=== PATIENT | female | born 1975 | race Caucasian/White ===

== ENCOUNTER 2017-01-14 07:08 | Emergency (ER) | payer SELFPAY ==
--- NOTE | 2017-01-14 08:25 | ER Document Report ---
HPI - HPI Patient complains to provider of: pulled maggot out of scalp Onset: Other - 2 weeks Onset/Duration: Gradual Pain Level: 3 Context: 41 yo female normally healthy has been scratching scalp because of itching since her aaughter was dx with scabies. pulled"maggot out this am". Cant' stop the itch and scratching Under stress with spouse, Not suicidal. Tearful. Also c/ o neck pain, swelling. Associated Symptoms: None Exacerbated by: Denies Similar symptoms previously: No - ROS ROS below otherwise negative: Yes Systems Reviewed and Negative: Yes All other systems reviewed and negative - REPRODUCTIVE Reproductive: DENIES: : - DERM Skin Color: Normal Past Medical History - General Information source: Patient - Social History Smoking Status: Current Every Day Smoker Chew tobacco use (# tins/day): No Frequency of alcohol use: None Drug Abuse: None Lives with: Family, Spouse/Significant other Family History: Hypertension, Malignancy Patient has suicidal ideation: No Patient has homicidal ideation: No - Past Medical History Cardiac Medical History: Reports: Hx Congestive Heart Failure - post-, Hx Hypertension Neurological Medical History: Reports: Hx Migraine Renal/ Medical History: Denies: Hx Peritoneal Dialysis Psychiatric Medical History: Reports: Hx Anxiety Past Surgical History: Reports: Hx Section, Hx Tubal Ligation - Immunizations Hx Diphtheria, Pertussis, Tetanus Vaccination: Yes Vertical Provider Document - CONSTITUTIONAL Agree With Documented VS: Yes Exam Limitations: No Limitations General Appearance: No Apparent Distress - INFECTION CONTROL TRAVEL OUTSIDE OF THE [place] IN LAST 30 DAYS: No - HEENT Notes: scalp with alopecia, excoriated lesions. - NECK Neck: Supple Notes: occipital lyphnodes from scalp lesions - RESPIRATORY Respiratory: Breath Sounds Normal, No Respiratory Distress O2 Sat by Pulse Oximetry: 99 - CARDIOVASCULAR Cardiovascular: Regular Rate, Regular Rhythm - MUSCULOSKELETAL/EXTREMETIES Musculoskeletal/Extremeties: CONCEPCION, FROM - NEURO Level of Consciousness: Awake, Alert - DERM Integumentary: Warm, Dry, Rash - see above Course - Re-evaluation Re-evalutation: 01/14/17 08:45 pt does not want referral for counselor, states that now that she knows this is not real maggots or lice, she will be OK. 01/14/17 09:19 bp elevated, rocking in the stretcher, has someone to drive her home. 01/14/17 10:10 Blood pressure is down to 156/94 manually in the right arm. She was resting she states her skin still itches but she is calm her. She did have to take antihypertensives after her second child was born and I told her to recheck her blood pressure next week because of her persists at this level she'll need to be treated. 01/14/17 10:20 spoke with her daughter who will encourage her to see counselor. Resources given to pt. - Vital Signs Vital signs: Temp Pulse Resp BP Pulse Ox 97.3 F 84 20 162/88 H 99 01/14/17 07:16 01/14/17 07:16 01/14/17 07:16 01/14/17 07:17 01/14/17 07:16 Discharge - Discharge Clinical Impression: Anxiety, scalp erosion due to scratching, adenopathy, itching, Elevated blood pressure reading Condition: Good Disposition: HOME, SELF-CARE Instructions: Cephalexin ([facility]), Itching, Nonspecific ([facility]), Lymphadenopathy ( [facility]), Family Physicians / Practices Additional Instructions: wear hat so you won't scratch your scalp heat to swollen lymph nodes to er if worse take the atarax for the itch and anxiety see the family practice doctor for blood pressure recheck next week. Prescriptions: Cephalexin Monohydrate [Keflex 500 mg Capsule] 500 mg PO QID #28 capsule Hydroxyzine HCl 50 mg PO Q6H #60 tablet
[2017-01-14] MEDS ORDERED: HYDROXYZINE PAMOATE 50 MG CAPSULE PO ONE (09:19)
[2017-01-14] MEDS ORDERED: ACETAMINOPHEN 325 MG TABLET PO ONE (09:20)
[2017-01-14] MEDS ORDERED: IBUPROFEN 800 MG TABLET PO ONE (09:20)
[2017-01-14 10:21] VITALS: BP 156/94
== END 2017-01-14 10:21 | disposition home or self-care (01) ==
LOC: ER 07:08
DX: S00.01XA Abrasion of scalp, initial encounter (principal); X58.XXXA Exposure to other specified factors, initial encounter; L29.9 Pruritus, unspecified; R59.9 Enlarged lymph nodes, unspecified; M54.2 Cervicalgia; F17.200 Nicotine dependence, unspecified, uncomplicated; I10 Essential (primary) hypertension; Z20.7 Contact with and (suspected) exposure to pediculosis, acariasis and other infestations
CPT/HCPCS: 99282

== ENCOUNTER 2018-12-20 10:13 | Emergency (ER) | payer SELFPAY ==
[2018-12-20] MEDS ORDERED: ONDANSETRON HCL INJ/PF 4 MG/2 ML SDV IV ONE (10:37)
--- NOTE | 2018-12-20 10:43 | ER Document Report ---
ED General - General Stated Complaint: POSSIBLE OVERDOSE Time Seen by Provider: 12/20/18 10:37 TRAVEL OUTSIDE OF THE [place] IN LAST 30 DAYS: No - HPI Notes: Patient is a 43-year-old female that presents to the emergency department for chief complaint of heroin withdrawal. Patient states she last used heroin last night and then woke up this morning feeling nausea vomiting and diarrhea. She has had withdrawal before and states this felt the same. She states she does not want to be on heroin anymore. She took a Suboxone that was given to her by a friend but the withdrawal symptoms continued so she snorted heroin. She denies any loss of consciousness and there was no decreased mentation or apnea. EMS did not have to administer Narcan. Patient states that the amount of hair when she started was minimal compared to what she usually does and she is still in withdrawal. She denies any alcohol or other drug use. Past Medical History: Negative Past Surgical History: Negative Social History: Daily heroin abuse. Daily tobacco use. Denies alcohol use Family History: Reviewed and noncontributory for presenting illness Allergies: Reviewed, see documented allergy list. REVIEW OF SYSTEMS: CONSTITUTIONAL : No fever No chills No diaphoresis No recent illness EENT: No vision changes No congestion No sore throat CARDIOVASCULAR: No chest pain No palpitations RESPIRATORY: No shortness of breath No cough No difficulty breathing GASTROINTESTINAL: No abdominal pain nausea vomiting diarrhea GENITOURINARY: No dysuria No hematuria No difficulty urinating MUSCULOSKELETAL: No back pain No leg pain No arm pain SKIN: No rashes No lesions LYMPHATIC: No swollen, enlarged glands. NEUROLOGICAL: No lightheadedness No headache No weakness No paresthesias PSYCHIATRIC: No anxiety No depression PHYSICAL EXAMINATION: Vital signs reviewed, nursing noted reviewed. GENERAL: well-nourished and in no acute distress. HEAD: Atraumatic, normocephalic. EYES: Eyes appear normal, extraocular movements intact, sclera anicteric, conjunctiva are normal. ENT: nares patent, oropharynx clear without exudates. Moist mucous membranes. NECK: Normal range of motion, supple without lymphadenopathy LUNGS: Breath sounds clear to auscultation bilaterally and equal. No wheezes rales or rhonchi. HEART: Regular rate and rhythm without murmurs ABDOMEN: Soft, nontender, normoactive bowel sounds. No rebound, guarding, or rigidity. No masses appreciated. EXTREMITIES: Nontender, good range of motion, no pitting or edema. NEUROLOGICAL: No focal neurological deficits. Moves all extremities spontaneously Motor and sensory grossly intact on exam. PSYCH: Agitated SKIN: Warm, Dry, normal turgor, no rashes or lesions noted on exposed skin - Related Data Allergies/Adverse Reactions: Sulfa (Sulfonamide Antibiotics) Allergy (Intermediate, Verified 01/14/17 07:21) Past Medical History - Social History Smoking Status: Current Every Day Smoker Family History: Hypertension, Malignancy - Past Medical History Cardiac Medical History: Reports: Hx Congestive Heart Failure - post-, Hx Hypertension Denies: Hx Coronary Artery Disease, Hx Heart Attack Neurological Medical History: Reports: Hx Migraine Renal/ Medical History: Denies: Hx Peritoneal Dialysis Psychiatric Medical History: Reports: Hx Anxiety Past Surgical History: Reports: Hx Section, Hx Tubal Ligation - Immunizations Hx Diphtheria, Pertussis, Tetanus Vaccination: Yes Course - Re-evaluation Re-evalutation: 12/20/18 10:41 Vitals reviewed. Nursing notes reviewed. Patient is hemodynamically stable. She was given 4 mg Zofran by EMS which did improve her nausea, she is still complaining of feeling nauseous and was given another dose of Zofran in the emergency room. She has had one episode of nonbloody diarrhea in the emergency room. Patient was given mobile crisis phone number for referral for outpatient detox. Her symptoms are consistent with heroin withdrawal since she has used less than her normal amount. She did not overdose on medication or require any resuscitation. She is stable at discharge. Discharge - Discharge Clinical Impression: Opiate withdrawal Condition: Stable Disposition: HOME, SELF-CARE Additional Instructions: Please return to the emergency department if you have any worsening, or concern of your symptoms. Please return to the emergency department if you develop chest pain, difficulty breathing, severe abdominal pain, or ongoing vomiting. Please follow-up with your primary care physician in 2-3 days and any other recommended physicians. If prescribed, take all medications as directed. If you have any questions or concerns do not hesitate to return the emergency department for evaluation. The symptoms were expensing today are related to your opiate withdrawal. Take the Zofran prescribed as needed for nausea. Stay well-hydrated by drinking lots of water. Follow with [facility] for opiate detoxification Prescriptions: Ondansetron [Zofran Odt 4 mg Tablet] 1 tab PO Q4H PRN #15 tab.rapdis PRN Reason: For Nausea/Vomiting
[2018-12-20 10:57] VITALS: BP 116/96
== END 2018-12-20 11:13 | disposition home or self-care (01) ==
LOC: ER 10:13
DX: F11.23 Opioid dependence with withdrawal (principal); R11.2 Nausea with vomiting, unspecified; R19.7 Diarrhea, unspecified; F17.200 Nicotine dependence, unspecified, uncomplicated; Z88.2 Allergy status to sulfonamides; I10 Essential (primary) hypertension
CPT/HCPCS: 99284; 96374; J2405